=== PATIENT | female | born 2000 | race African-American/Black ===

== ENCOUNTER 2023-04-18 12:35 | Outpatient (CLI) | payer BC, SELFPAY ==
--- NOTE | ~2023-04-18 | NM_ITS ---
EXAMINATION: ZOE thakkar renal scan DATE: 04/18/2023 14:52 INDICATION: Right ureteral dilation TECHNIQUE: 7.9 mCi Tc-99m MAG3 was administered IV. 40 mg furosemide was administered IV immediately afterward. The patient was scanned in the supine position. A posterior abdominal radionuclide angiog nasir was obtained. A subsequent time course of static images of the kidneys, ureters, and bladder was obtained. COMPARISON: None FINDINGS: The posterior abdominal radionuclide angiogram and sequential static images show normal size, positio n, and morphology of the kidneys. Peak renal parenchymal uptake was 2.5 min in left kidney and 2.5 mi n in right kidney (normal peak 3-5 minutes). The relative early renal uptake was 48% on the left and 52% on the right (<40% is abnormal). No abnormalities of the ureters or bladder are seen. T1/2 for clearance of activity from the left kidney and proximal collecting system was 7 minutes. T1/2 for clearance of activity from the right kidney and proximal collecting system was 8 minutes. Notes on interpretation: T1/2 <10 minutes is normal, 10-15 minutes is low grade obstruction of questi onable clinical significance, 15-20 minutes is partial obstruction that is likely clinically signific ant, >20 minutes is high grade obstruction. Note that false positives may be seen with supine positio anastasia, dehydration, severely dilated nonobstructed kidney, atonic collecting system, poor renal functi on, and chronic furosemide use. IMPRESSION: 1. Symmetric kidney function. 2. No delay in contrast clearance from either kidney to suggest fixed obstruction. Reviewed, dictated and finalized at location A. [employer] IMPRESSION: 1. Symmetric kidney function. 2. No delay in contrast clearance from either kidney to suggest fixed obstruct ion.
== END 2023-04-18 12:36 | disposition home or self-care (01) ==
LOC: ANHIMG 12:36
PROVIDERS: PCP Urology; Visit Provider Urology
DX: N28.82 Megaloureter (principal)
CPT/HCPCS: 78708; A9562